=== PATIENT | female | born 1985 | race Caucasian/White ===

== ENCOUNTER → 2021-01-21 | Outpatient (CLI) | payer OTHER ==
[~2021-01-21] MED LIST: BACTRIM 400 MG-1 TAB PO; CEPHALEXIN500 M1 PO; COLESTID 1GM1 G PO; MOTRIN 600600 MG/TAB PO; NITRO-BID22 RC; PAMELOR50 MG PO; PERCOCET 325 MG1 TA2 PO; PROBIOTIC FORMU1 CAP PO; PROTONIX20 MG; PYRIDIUM 100MG100 MG PO; RECLIPSEN 0.151 TAB PO; TAZORAC 0.05% CR1 TU TP; TOPROL XL 25MG25 MG PO; YAZ PO; [UNRECOGNIZED DRUG - OTHER]
== END ==
LOC: COL.RAD 08:22
DX: M25.851 Other specified joint disorders, right hip (principal)
CPT/HCPCS: A9585; J3301; Q9967

== ENCOUNTER → 2023-06-23 | Outpatient (CLI) | payer OTHER ==
[~2023-06-23] MED LIST changes: +ALBUTEROL1.25 MG/3 IH; +Albuterol 0.083% Neb Soln 2.5 MG/3 ML UD IH ONE; +Methacholine Vial A (Clear Label Base-Cntrl) IH ONE; +Methacholine Vial B (Red Label) 0.0625 MG/ML 3 ML VIAL.NEB IH ONE; +Methacholine Vial C (Orange Label) 0.25 MG/ML 3 ML VIAL.NEB IH ONE; +Methacholine Vial D (Yellow Label) 1 MG/ML 3 ML VIAL.NEB IH ONE; +Methacholine Vial E (Green Label) 4 MG/ML 3 ML VIAL.NEB IH ONE; +Methacholine Vial F (Blue Label) 16 MG/ML 3 ML VIAL.NEB IH ONE; +NEB MC; +PREDNISONE50 MG PO; +ZITHROMAX Z PA250 MG PO
== END ==
LOC: COL.CARD 06:13
DX: R06.02 Shortness of breath (principal)
CPT/HCPCS: J7674